=== PATIENT | female | born 1945 | race Two or more races ===

== ENCOUNTER 2019-10-05 15:10 | Inpatient (IN) | payer OTHER ==
[~2019-10-05] VITALS: Ht 152.4 cm; Wt 63.5 kg
[2019-10-17] MEDS ORDERED: SYNTHROID50 MCG PO (12:14)
[2019-10-17] MEDS ORDERED: PROTONIX40 M1 PO (12:15)
[2019-10-17] MEDS ORDERED: ENALAPRIL MALEA10 MG PO (12:16)
[2019-10-17] MEDS ORDERED: CARAF PO (12:16)
[2019-10-17] MEDS ORDERED: ATORVASTATIN CA10 MG PO (12:16)
[2019-10-24] MEDS ORDERED: ENALAPRIL MALEA20 MG (08:04)
[2019-10-24] MEDS ORDERED: SUCRALFATE1 GM/10 ML (08:05)
== END 2019-10-26 20:00 | disposition home or self-care (01) | DRG 331 ==
LOC: SURH 10-24 05:50 → O/R 10-24 05:50 → SURH 10-24 09:45
PROVIDERS: ADMIT Colon & Rectal Surgery; ATTEND Colon & Rectal Surgery
PROC: 07TB4ZZ Resection of Mesenteric Lymphatic, Percutaneous Endoscopic Approach (ICD-10-PCS; 2019-10-24)
PROC: 0DTF4ZZ Resection of Right Large Intestine, Percutaneous Endoscopic Approach (ICD-10-PCS; principal; 2019-10-24 18:15)
DX: C18.4 Malignant neoplasm of transverse colon (principal); R59.0 Localized enlarged lymph nodes; I10 Essential (primary) hypertension; Z20.828 Contact with and (suspected) exposure to other viral communicable diseases

== ENCOUNTER 2021-01-31 06:55 | Day surgery (SDC) | payer OTHER ==
[~2021-01-31 06:55] MED LIST: ATORVASTATIN CA10 MG PO; CARAF PO; ENALAPRIL MALEA10 MG PO; ENALAPRIL MALEA20 MG; PROTONIX40 M1 PO; SUCRALFATE1 GM/10 ML; SYNTHROID50 MCG PO
== END 2021-01-31 11:05 | disposition home or self-care (01) ==
LOC: AMB-ENDOS 06:55
PROVIDERS: ATTEND Colon & Rectal Surgery
DX: K62.89 Other specified diseases of anus and rectum (principal); K64.2 Third degree hemorrhoids; Z20.822 Contact with and (suspected) exposure to COVID-19

== ENCOUNTER 2024-10-28 20:11 | Inpatient (IN) | payer OTHER ==
[~2024-10-28] VITALS: Ht 157.5 cm; Wt 68.0 kg
[~2024-10-28 20:11] MED LIST changes: -ENALAPRIL MALEA20 MG; +VASOTEC2.5 MG PO
[2024-10-28] MEDS ORDERED: ACID REDUCER20 M1 (20:46)
--- NOTE | 2024-10-28 21:01 | NUR ---
SE RECIBE PACIENTE FEMENINA DE 79 [address] SE PRESENTA CON QUEJA PRINICIPAL DE [place] RECTAL PROFUSO EN EL KELLEY DE ABBY. REFIERE QUE EL KELLEY DE NEERAJ SE LE REALIZO SARAH COLONOSCOPIA POR EL . TIM EL TRIAGE PACIENTE PRESENTA PRESION ARTERIAL ELEVADA, SE PROCEDE A CONFIRMAR LA CB MEDIANTE METODO MANUAL. SE REALIZA EKG ALEAH PROTOCOLO PARA DESCARTAR ALTERACIONES CARDIACAS Y SE PRESENTA A ULIESS SINGH QUIEN DETERMINA QUE SE PUEDE PASAR A PACIENTE A AREA DE OBSERVACION EN KONRAD
[2024-10-28] MEDS ORDERED: 0.9 % SODIUM CHLORIDE 1,000 ML IV STA (23:26)
[2024-10-28] MEDS ORDERED: HYOSCYAMINE SULFATE 0.125 MG TAB.SUBL SL ONE (23:30)
[2024-10-28] MEDS ORDERED: HYOSCYAMINE SULFATE 0.125 MG TAB.SUBL ONE (23:35)
[2024-10-29] MEDS ORDERED: METHYLPREDNISOLONE SOD SUCC 125 MG VIAL IV STA (00:04)
[2024-10-29] MEDS ORDERED: DIPHENHYDRAMINE HCL 50 MG/ML VIAL 1ML IV STA (00:05)
--- NOTE | 2024-10-29 00:18 | NUR ---
SE EDUCA PACIENTE SOBRE EL [place] MEDICO Y ESTA REFIERE ENTENDER. SE CANALIZA Y SE ADMINISTRA MEDICAMENTOS ALEAH ORDEN MEDICA. SE SLADE MUESTRAS DE [facility]ATORIOS Y SE ENVIAN. PENDIENTE A CT SCAN
[2024-10-29 00:26] LABS: BASO % 0.5 % (0.1-1.2); EOS # 0.13 (0.04-0.54); EOS % 1.1 % (0.7-7.0); LYMPH # 2.00 (1.18-3.74); LYMPH % 17.0 % (19.3-53.1); MEAN PLATELET VOLUME 12.70 fl (9.4-12.4); MONO # 0.84 (0.24-0.82); MONO % 7.2 % (4.7-12.5); NEUT # 8.67 (1.56-6.13); NEUT % 73.9 % (34.0-71.1); RED CELL DISTRIBUTION WIDTH 13.7 % (11.6-14.4)
[2024-10-29] MEDS ORDERED: DIPHENHYDRAMINE HCL 50 MG/ML VIAL 1ML ONE ×2 (01:40→21:50)
[2024-10-29] MEDS ORDERED: METHYLPREDNISOLONE SOD SUCC 125 MG VIAL ONE (01:40)
[2024-10-29 01:54] LABS: INR 1.03
[2024-10-29 02:14] LABS: ALT/SGPT 19.0 U/L (12-78); AST/SGOT 29.0 U/L (15-37); BILIRUBIN TOTAL 1.32 mg/dL (0.3-1.2); BUN CREA RATIO 17.0 (7.0-25.0); CREATININE SERUM 0.89 mg/dL (0.55-1.02); GFR 61.34; GLOBULINA 3.9 G/DL (2.4-3.5); GLUCOSE FASTING 121.0 mg/dL (65-100); OSMOLALITY SERUM 289.0 MOSM/KG (275-295)
[2024-10-29] MEDS ORDERED: CIPROFLOXACIN IN 5 % DEXTROSE 400 MG/200 ML PIGGYBAG IV ONE ×3 (04:56→18:03)
[2024-10-29] MEDS ORDERED: METRONIDAZOLE/SODIUM CHLORIDE 500 MG/100 ML PIGGYBACK IV ONE ×2 (04:56→05:00)
--- NOTE | 2024-10-29 07:14 | NUR ---
SE RECIBE PTE DEL TURNO ANTERIOR ALERTA Y ORIENTADA X3 EN CAMA CON BARANDAS ELEVADAS.PTE CANALIZADA CON ANGIO #18 CON DRIP DE 0.9NSS BAJANDO A 120MLS/HR. PTE CONSULTADA CON DR SKINNER
--- NOTE | 2024-10-29 08:17 | NUR ---
SE LLAMO A FARMACIA MEDICAMENTO PENDIENTE QUE LO ENTREGUEN.
[2024-10-29] MEDS ORDERED: PANTOPRAZOLE SODIUM 40 MG in 0.9 % SODIUM CHLORIDE 8 ML IV PUSH STA (08:49)
[2024-10-29] MEDS ORDERED: CIPROFLOXACIN IN 5 % DEXTROSE 200 ML IV SCH (17:49)
[2024-10-29] MEDS ORDERED: PANTOPRAZOLE SODIUM 40 MG in 0.9 % SODIUM CHLORIDE 8 ML IV PUSH SCH (17:49)
[2024-10-29 18:00] VITALS: BP 134/79
[2024-10-29] MEDS ORDERED: 0.9 % SODIUM CHLORIDE 1,000 ML IV SCH (18:00)
[2024-10-29] MEDS ORDERED: LISINOPRIL 2.5 MG TABLET PO PRN (18:15)
[2024-10-29] MEDS ORDERED: MORPHINE SULFATE 2 MG/ML CARTRIDGE IV PRN (18:15)
[2024-10-29 21:38] LABS: URINE APPEARANCE Clear; URINE BILIRRUBIN Negative (NEGATIVE); URINE BLOOD Moderate; URINE COLOR Dark Yellow; URINE GLUCOSE Negative (NEGATIVE); URINE LEUKOCYTE Trace; URINE NITRATE Negative; URINE UROBILINOGEN 1.0 E.U./dl
[2024-10-29 21:41] LABS: FECAL LEUKOCYTES POSITIVE (NEGATIVE); URINE BACTERIA 139.1 uL (0.0-1933); URINE EPITHELIAL CELLS 7.0 uL (0.0-38.8); URINE RBC 35.9 uL (0.0-20.8); URINE WBC 7.3 uL (0.0-23.2); ob POSITIVE (NEGATIVE)
[2024-10-29 21:46] LABS: URINE CAST 0.87 uL (0.0-1.40); URINE KETONE 40 (NEGATIVE); URINE PROTEIN 100 (NEGATIVE)
[2024-10-29] MEDS ORDERED: DIPHENHYDRAMINE HCL 50 MG/ML VIAL 1ML IV ONE (22:00)
[2024-10-30 00:40] VITALS: BP 143/76; O2SAT 96
[2024-10-30] MEDS ORDERED: LEVOTHYROXINE SODIUM 50 MCG TABLET PO SCH (06:00)
[2024-10-30 08:21] VITALS: BP 122/69; O2SAT 95
[2024-10-30 08:51] LABS: BASO % 0.4 % (0.1-1.2); EOS # 0.05 (0.04-0.54); EOS % 0.3 % (0.7-7.0); LYMPH # 3.11 (1.18-3.74); LYMPH % 21.7 % (19.3-53.1); MEAN PLATELET VOLUME 11.60 fl (9.4-12.4); MONO # 1.14 (0.24-0.82); MONO % 7.9 % (4.7-12.5); NEUT # 9.93 (1.56-6.13); NEUT % 69.3 % (34.0-71.1); RED CELL DISTRIBUTION WIDTH 13.6 % (11.6-14.4)
[2024-10-30] MEDS ORDERED: CIPRO500 MG PO (15:02)
[2024-10-30] MEDS ORDERED: METRONIDAZOLE500 MG PO (15:03)
[2024-10-30 17:19] VITALS: BP 173/81; O2SAT 96
== END 2024-10-30 15:25 | disposition home or self-care (01) | DRG 379 ==
LOC: ER 20:11 → SURG 10-29 17:50
PROVIDERS: General Practice; ADMIT Colon & Rectal Surgery; ATTEND Colon & Rectal Surgery
PROC: BW21YZZ Computerized Tomography (CT Scan) of Abdomen and Pelvis using Other Contrast (ICD-10-PCS; principal; 2024-10-29)
DX: K62.5 Hemorrhage of anus and rectum (principal); R10.9 Unspecified abdominal pain; Z86.0100 Personal history of colon polyps, unspecified; I10 Essential (primary) hypertension; D12.3 Benign neoplasm of transverse colon